=== PATIENT | female | born 1980 | race Caucasian/White ===

== ENCOUNTER 2017-10-02 22:46 | Emergency (ER) | payer MEDICAID ==
[2017-10-03] MEDS: predniSONE 20 MG TAB PO (02:50)
[2017-10-03] MEDS: IPRATROPIUM (NEB) 0.5 MG/2.5 ML AMP NEB (03:01)
[2017-10-03] MEDS: ALBUTEROL 0.083% (NEB) 2.5 MG/3 ML AMP NEB (03:01)
[2017-10-03] MEDS: ALBUTEROL 0.5% (NEB) 2.5 MG/0.5 ML AMP INH (04:02)
== END 2017-10-03 05:30 | disposition home or self-care (01) ==
LOC: FTE 22:46
DX: J45.31 Mild persistent asthma with (acute) exacerbation (principal)
CPT/HCPCS: 94644; 94664; 99284-25